=== PATIENT | female | born 1965 | race African-American/Black ===

== ENCOUNTER 2017-11-05 15:14 | Emergency (ER) | payer BC ==
[2017-11-05 15:46] VITALS: PULSE 81; TEMP 98.3; BMI 27.4
--- NOTE | 2017-11-05 15:48 | PDOC ---
Rapid Medical Evaluation Time Seen by Provider: 11/05/17 15:40 Medical Evaluation: Allergies Allergy/AdvReac Type Severity Reaction Status Date / Time No Known Allergies Allergy Verified 11/05/17 15:40 11/05/17 15:40 The patient presents with a chief complaint of: [" I feel that my blood pressure is high" On enalapril. Headache (resolved) took home remedies at home. , sinus pressure, dizziness, denies fever. " Feels run down" No chest pain or SOB.] I have performed a brief in-person evaluation of this patient. Pertinent physical exam findings: vss, [RRR, lungs clear, + frontal sinus pressure. Neuro intact. ] I have ordered the following: [EKG, CBC, CMP, cardiac panel] The patient will proceed to the ED for further evaluation. 11/05/17 15:49
[2017-11-05 16:25] LABS: BASO % 0.5 % (0-2.0); EOS % 2.1 % (0-4.5); HEMATOCRIT 45.1 % (32.4-45.2); HEMOGLOBIN 14.6 GM/dL (10.7-15.3); LYMPH % 37.9 % (8-40); MCH 28.1 pg (25.7-33.7); MCHC 32.3 g/dl (32.0-36.0); MEAN CELL VOLUME 86.8 fl (80-96); MEAN PLT VOLUME 10.2 fl (7.5-11.1); MONO % 6.7 % (3.8-10.2); NEUT % 52.8 % (42.8-82.8); PLATELET COUNT 246 K/MM3 (134-434); RBC 5.19 M/mm3 (3.60-5.2); RDW 14.2 % (11.6-15.6); WHITE BLOOD COUNT 8.7 K/mm3 (4.0-10.0)
[2017-11-05 16:39] LABS: ALBUMIN 4.4 g/dl (3.4-5.0); ANION GAP 5 (8-16); BILIRUBIN,TOTAL 0.4 mg/dL (0.2-1.0); BLOOD UREA NITROGEN 8 mg/dL (7-18); CALCIUM 8.8 mg/dL (8.5-10.1); CHLORIDE 105 mmol/L (98-107); CO2 27 mmol/L (21-32); CREATININE 0.8 mg/dL (0.55-1.02); GLUCOSE,RANDOM 142 mg/dL (74-106); POTASSIUM 4.1 mmol/L (3.5-5.1); SGOT/AST 23 U/L (15-37); SGPT/ALT 44 U/L (12-78); SODIUM 137 mmol/L (136-145); TOT PROT 8.3 g/dl (6.4-8.2)
[2017-11-05 16:42] LABS: ALK PHOS 62 U/L (45-117)
[2017-11-05] MEDS ORDERED: METOCLOPRAMIDE HCL INJECTION 10 MG/2 ML VIAL IVPB ONE (17:00)
[2017-11-05] MEDS ORDERED: ENALAPRIL MALEATE 10 MG TABLET (FP) PO SCH (17:00)
--- NOTE | 2017-11-05 17:03 | PDOC ---
History of Present Illness - General Chief Complaint: Blood Pressure Problem Stated Complaint: HEADACHE, BLOOD PRESSURE PROBLEM Time Seen by Provider: 11/05/17 15:40 History Source: Patient - History of Present Illness Timing/Duration: other Severity: severe Associated Symptoms: reports: headaches, nausea/vomiting. denies: chest pain, fever/chills, loss of appetite, malaise, seizure, shortness of breath, syncope, weakness Past History - Past Medical History Allergies/Adverse Reactions: Allergies Allergy/AdvReac Type Severity Reaction Status Date / Time No Known Allergies Allergy Verified 11/05/17 15:40 Home Medications: Ambulatory Orders Enalapril Maleate [Vasotec] 10 mg PO DAILY 11/05/17 Metformin HCl [Metformin HCl ER] 1,000 mg PO BID 11/05/17 Ramipril [Altace] 5 mg PO BID 11/05/17 COPD: No Diabetes: Yes HTN: Yes Thyroid Disease: Yes - Suicide/Smoking/Psychosocial Hx Smoking Status: No Smoking History: Never smoked Have you smoked in the past 12 months: No Number of Cigarettes Smoked Daily: 0 Information on smoking cessation initiated: No Hx Alcohol Use: No Drug/Substance Use Hx: No Substance Use Type: None Review of Systems - Review of Systems Constitutional: No: Fever HEENTM: No: Blurred Vision Respiratory: No: Shortness of Breath Cardiac (ROS): No: Chest Pain ABD/GI: Yes: Nausea. No: Vomiting Neurological: Yes: Headache. No: Numbness, Tingling, Weakness, Dizziness *Physical Exam - Vital Signs Last Vital Signs Temp Pulse Resp BP Pulse Ox 98.3 F 81 18 220/105 100 11/05/17 15:42 11/05/17 15:42 11/05/17 15:42 11/05/17 15:42 11/05/17 15:42 - Physical Exam General Appearance: Yes: Appropriately Dressed. No: Apparent Distress HEENT: positive: Normal Voice Neck: positive: Supple Respiratory/Chest: positive: Lungs Clear, Normal Breath Sounds. negative: Respiratory Distress Cardiovascular: positive: Regular Rate, S1, S2 Gastrointestinal/Abdominal: positive: Soft. negative: Tender, Pulsatile Mass Integumentary: positive: Dry, Warm Neurologic: positive: Fully Oriented, Alert, Normal Mood/Affect, Normal Response , Motor Strength 5/5, Finger to Nose. negative: Facial Droop, Confused, Disoriented Heart Score/ECG Review - ECG Intrepretation Comment:: 11/05/17 17:57 Twelve-lead EKG was performed and reviewed by me. There is normal sinus rhythm with a normal rate. The axis is normal. The intervals are normal. There are no ST or T wave abnormalities. Impression: Normal twelve-lead EKG ED Treatment Course - LABORATORY CBC & Chemistry Diagram: 11/05/17 16:00 11/05/17 16:00 - ADDITIONAL ORDERS Additional order review: Laboratory Results 11/05/17 16:00 Sodium 137 Potassium 4.1 Chloride 105 Carbon Dioxide 27 Anion Gap 5 L BUN 8 Creatinine 0.8 Creat Clearance w eGFR > 60 Random Glucose 142 H Calcium 8.8 Total Bilirubin 0.4 AST 23 ALT 44 Alkaline Phosphatase 62 Creatine Kinase 89 Troponin I < 0.02 Total Protein 8.3 H Albumin 4.4 11/05/17 16:00 RBC 5.19 MCV 86.8 MCHC 32.3 RDW 14.2 MPV 10.2 Neutrophils % 52.8 Lymphocytes % 37.9 D Monocytes % 6.7 Eosinophils % 2.1 Basophils % 0.5 - RADIOLOGY Radiology Studies Ordered: Category Date Time Status HEAD CT WITHOUT CONTRAST [CT] Stat CT Scan 11/05/17 16:57 Ordered Medical Decision Making - Medical Decision Making 11/05/17 17:01 52-year-old female, history of NIDDM, HTN on enalapril 10mg, here with headache. Patient reports bitemporal headache that started today and is constant, with a severity of 8 out of 10 with mild nausea but no vomiting, visual changes, focal weakness. Patient reports that her blood pressure has been increasing over the past week. Highest 170s over 100 at home. Has been taking her enalapril daily. No CP or SOB See exam BENITES in setting of poorly controlled HTN BP 220/105 in ED w/ clear chest/lungs and no focal deficits -reglan -CTH r/o ICH -labs e/o EOD -manage BP in ED -dispo pending 11/05/17 17:04 11/05/17 19:00 Pt signed out to EDNA Gutierrez at this point pending CT head and reassessment. If discharged, should be instructed to follow-up with PMD in the a.m. for further management of her hypertension *DC/Admit/Observation/Transfer Diagnosis at time of Disposition: Elevated blood pressure reading - Referrals Referrals: Johanne Espinoza MD [Primary Care Provider] - - Patient Instructions Printed Discharge Instructions: DI for High Blood Pressure Additional Instructions: You labs and CT head were normal. Your blood pressure improved with an extra dose of your enalapril Please contact your PMD in am Return to ED for worsening of symptoms - Post Discharge Activity
[2017-11-05] MEDS ORDERED: ACETAMINOPHEN 325 MG TABLET (FP) PO ONE (17:47)
--- NOTE | 2017-11-05 19:23 | PDOC ---
*Physical Exam - Vital Signs Last Vital Signs Temp Pulse Resp BP Pulse Ox 98.3 F 81 18 220/105 100 11/05/17 15:42 11/05/17 15:42 11/05/17 15:42 11/05/17 15:42 11/05/17 15:42 ED Treatment Course - LABORATORY CBC & Chemistry Diagram: 11/05/17 16:00 11/05/17 16:00 - ADDITIONAL ORDERS Additional order review: Laboratory Results 11/05/17 16:00 Sodium 137 Potassium 4.1 Chloride 105 Carbon Dioxide 27 Anion Gap 5 L BUN 8 Creatinine 0.8 Creat Clearance w eGFR > 60 Random Glucose 142 H Calcium 8.8 Total Bilirubin 0.4 AST 23 ALT 44 Alkaline Phosphatase 62 Creatine Kinase 89 Troponin I < 0.02 Total Protein 8.3 H Albumin 4.4 11/05/17 16:00 RBC 5.19 MCV 86.8 MCHC 32.3 RDW 14.2 MPV 10.2 Neutrophils % 52.8 Lymphocytes % 37.9 D Monocytes % 6.7 Eosinophils % 2.1 Basophils % 0.5 - Medications Given in the ED: ED Medications Discontinued Medications Generic Name Dose Route Start Last Admin Trade Name Sahil PRN Reason Stop Dose Admin Acetaminophen 650 mg 11/05/17 17:47 11/05/17 18:00 Tylenol - PO 11/05/17 17:48 650 mg ONCE ONE Administration Metoclopramide HCl 10 mg 11/05/17 17:00 11/05/17 17:58 Reglan Injection - IVPB 11/05/17 17:01 Not Given ONCE ONE Medical Decision Making - Medical Decision Making 11/05/17 20:23 repeat b/p manual 200/100. patient reports no headache. 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 11/05/17 22:09 b/p 160/ 100. patient alert awake. to pickle sorter patient. strict return precautions reviewed. *DC/Admit/Observation/Transfer Diagnosis at time of Disposition: Elevated blood pressure reading - Discharge Dispostion Disposition: HOME - Referrals Referrals: Johanne Espinoza MD [Primary Care Provider] - - Patient Instructions Printed Discharge Instructions: DI for High Blood Pressure Additional Instructions: You labs and CT head were normal. Your blood pressure improved with an extra dose of your enalapril Please contact your PMD in am Return to ED for worsening of symptoms - Post Discharge Activity Forms/Work/School Notes: Back to Work
[2017-11-05] MEDS ORDERED: cloNIDine HCL 0.1 MG TABLET PO ONE (20:24)
[2017-11-05] MEDS ORDERED: cloNIDine HCL 0.1 MG TABLET ONE (20:29)
[2017-11-05 20:32] VITALS: BP 200/100
--- NOTE | 2017-11-07 08:09 | EKG ---
Test Reason : Blood Pressure : / mmHG Vent. Rate : 074 BPM Atrial Rate : 074 BPM P-R Int : 138 ms QRS Dur : 082 ms QT Int : 402 ms P-R-T Axes : 061 023 068 degrees QTc Int : 446 ms NORMAL SINUS RHYTHM POSSIBLE LEFT ATRIAL ENLARGEMENT BORDERLINE ECG WHEN COMPARED WITH ECG OF 07-DEC-2007 23:07, NO SIGNIFICANT CHANGE WAS FOUND Confirmed by JUDAH LANDEROS, JOHN ([id number]) on 11/07/2017 8:08:45 AM Referred By: Confirmed By:JOHN SO MD
== END 2017-11-05 22:23 | disposition home or self-care (01) ==
LOC: JER 15:14
PROC: 3E033GC Introduction of Other Therapeutic Substance into Peripheral Vein, Percutaneous Approach (ICD-10-PCS; principal; 2017-11-05)
DX: I10 Essential (primary) hypertension (principal); E11.9 Type 2 diabetes mellitus without complications; Z79.84 Long term (current) use of oral hypoglycemic drugs; E07.89 Other specified disorders of thyroid
CPT/HCPCS: 36415; 70450-TC; 80053; 82550; 84484; 85025; 93005; 93010; 99283-25; J0735

== ENCOUNTER 2022-08-24 04:25 | Day surgery (SDC) | payer BC ==
[2022-08-22 16:37] VITALS: BMI 25.4
[2022-08-24 09:51] VITALS: TEMP 97.7
[2022-08-24 09:52] VITALS: BP 102/53; PULSE 67; RESP 19
== END 2022-08-24 09:55 | disposition home or self-care (01) ==
LOC: JASU-ENDO 04:25
PROVIDERS: ATTEND Internal Medicine Gastroenterology
PROC: 0D5K8ZZ Destruction of Ascending Colon, Via Natural or Artificial Opening Endoscopic (ICD-10-PCS; principal; 2022-08-24 08:00)
DX: Z12.11 Encounter for screening for malignant neoplasm of colon (principal); D12.2 Benign neoplasm of ascending colon; K64.8 Other hemorrhoids
CPT/HCPCS: 82962; 88305-TC